=== PATIENT | female | born 1985 | race Caucasian/White ===

== ENCOUNTER 2016-12-08 10:45 | Outpatient (CLI) | payer OTHER ==
[~2016-12-08 10:45] MED LIST: ENDOCET 5-3251 EACH PO; FEOSOL325 MG PO; IBUPROFEN800 MG PO; MOTRIN800 MG PO; PERCOCET 5/31 TABLET PO; PRENATABS FA T1 EACH PO; ZYRTEC10 M2 PO
[2016-12-08 11:03] VITALS: BP 122/80
[2016-12-08 12:33] VITALS: BP 125/71
[2016-12-08 13:00] LABS: BILIRUBIN NEGATIVE; BLOOD NEGATIVE; COLOR YELLOW ((YELLOW)); GLUCOSE (STRIP) NEGATIVE; KETONES NEGATIVE; LEUKOCYTES NEGATIVE; NITRITE NEGATIVE; PROTEIN (STRIP) NEGATIVE; SPECIFIC GRAVITY 1.009 (1.000-1.030); UROBILINOGEN 0.2 MG/DL (0.2-1.0)
[2016-12-08 13:01] LABS: ADD MIUA? NO
== END 2016-12-08 14:19 | disposition home or self-care (01) ==
LOC: LDRP-OP 10:45 → 2WEST 10:46 → LDRP-OP 03-27 13:17
PROVIDERS: Midwife
DX: O26.892 Other specified pregnancy related conditions, second trimester (principal); O99.612 Diseases of the digestive system complicating pregnancy, second trimester; R10.2 Pelvic and perineal pain; K59.00 Constipation, unspecified; Z3A.28 28 weeks gestation of pregnancy; O34.219 Maternal care for unspecified type scar from previous cesarean delivery
CPT/HCPCS: 59025; 81003; G0378

== ENCOUNTER 2017-02-17 06:34 | Inpatient (IN) | payer OTHER ==
[~2017-02-17] VITALS: Ht 165.1 cm; Wt 73.0 kg
[2017-02-17] VITALS (8 sets, daily range): BP systolic 103–128; BP diastolic 55–76
[2017-02-17] MEDS ORDERED: IBUPROFEN800 MG PO (09:27)
[2017-02-17] MEDS ORDERED: ENDOCET 5-3251 EACH PO (09:27)
[2017-02-18 03:15] VITALS: BP 109/66
[2017-02-18 07:21] VITALS: BP 98/58
[2017-02-18 07:24] LABS: EOSINOPHIL (%) 0.2 % (0-5); HEMATOCRIT 21.2 % (36.0-46.0); IMMATURE GRANULOCYTE (%) 1.2 % (0.0-0.7); IMMATURE GRANULOCYTE COUNT 0.2 K/uL; INSTRUMENT ABS NEUTROPHIL CT 9.5 K/uL; LYMPHOCYTE COUNT 1.8 K/uL (1.0-2.8); MCH 22.2 PG (29.0-34.0); MCHC 30.2 G/DL (30.0-36.0); MCV 73.6 FL (83-99); MEAN PLAT.VOLUME 10.7 uM^3 (9.5-12.4); MONOCYTE (%) 8.5 % (3-12); MONOCYTE COUNT 1.1 K/uL (0-0.8); NEUTROPHIL (%) 75.5 % (45-76); NEUTROPHIL COUNT 9.5 K/uL (1.8-6.4); NRBC (%) 0.2 /100 WBC (0-0); PLATELET COUNT 223 K/uL (156-360); RBC DIS.WIDTH-CV 15.9 % (11.8-14.6); RBC DIS.WIDTH-SD 41.7 % (39-53)
[2017-02-18 07:31] LABS: RED BLOOD COUNT 2.88 M/uL (3.80-5.20); WHITE BLOOD COUNT 12.6 K/uL (4.1-10.2)
[2017-02-18 12:00] VITALS: BP 107/64
[2017-02-18 15:03] VITALS: BP 118/71
[2017-02-18 19:00] VITALS: BP 125/71
[2017-02-18 23:00] VITALS: BP 110/64
[2017-02-19 03:00] VITALS: BP 116/72
[2017-02-19 07:51] VITALS: BP 117/77
== END 2017-02-19 13:09 | disposition home or self-care (01) | DRG 766 ==
LOC: 2WEST 06:34 → 2SOUTH 09:26 → 2WEST 02-19 13:09
PROVIDERS: Obstetrics & Gynecology
DX: O34.211 Maternal care for low transverse scar from previous cesarean delivery (principal); N85.8 Other specified noninflammatory disorders of uterus; Z3A.39 39 weeks gestation of pregnancy; Z37.0 Single live birth; Z30.2 Encounter for sterilization
CPT/HCPCS: 36415; 85025; 86900; 86901; 88302; J1100; J1580; J2274; J2405; J3010; J7050; J7120